=== PATIENT | male | born 1935 | race Caucasian/White ===

== ENCOUNTER 2016-08-21 09:39 | Emergency (ER) | payer OTHER, MEDICARE ==
[~2016-08-21] VITALS: Ht 190.5 cm; Wt 104.5 kg
[~2016-08-21 09:39] MED LIST: ACCUPRIL40 MG PO; AMLODIPINE BESYL5 MG PO; ANALGESIC325 M1 PO; ASPIRIN81 M1 PO; CALCIUM +D & M1 EAC1 PO; CALCIUM 600 +1 EACH PO; INDAPAMIDE2.5 MG PO; ISTALOL5 ML OP; MULTIVITAMIN1 EAC1 PO; NORVASC10 MG PO; NOVOLOG MI100 UNIT/4 IV; QUINAPRIL HCL40 MG PO; SANCTURA XR60 MG PO; SIMVASTATIN40 MG PO; SPIRIVA1 INHALATI IH; TRAVATAN Z5 ML BOTH EYES; TRAVATAN Z5 ML OP
[2016-08-21] MEDS ORDERED: XARELTO20 MG PO (10:00)
[2016-08-21] MEDS ORDERED: LISINOPRIL40 MG PO (10:00)
[2016-08-21] MEDS ORDERED: OXYBUTYNIN CHLO10 MG PO (10:01)
[2016-08-21] MEDS ORDERED: CRANBERRY200 MG PO (10:01)
[2016-08-21] MEDS ORDERED: VITAMIN D2000 UNI1 PO (10:01)
[2016-08-21] MEDS ORDERED: NYSTOP60 GM TP (10:02)
[2016-08-21] MEDS ORDERED: DERMAFIX113 GM TP (10:02)
[2016-08-21 10:29] LABS: EOSINOPHIL (%) 0.1 % (0-5); HEMATOCRIT 41.6 % (38.0-50.0); IMMATURE GRANULOCYTE (%) 0.7 % (0.0-0.7); IMMATURE GRANULOCYTE COUNT 0.1 K/uL; INSTRUMENT ABS NEUTROPHIL CT 12.9 K/uL; LYMPHOCYTE COUNT 0.9 K/uL (1.0-2.8); MCH 26.9 PG (29.0-34.0); MCHC 32.9 G/DL (30.0-36.0); MCV 81.6 FL (86-99); MEAN PLAT.VOLUME 9.5 uM^3 (9.0-12.4); MONOCYTE (%) 6.6 % (3-12); NEUTROPHIL (%) 86.5 % (45-76); NEUTROPHIL COUNT 12.9 K/uL (1.8-6.4); PLATELET COUNT 303 K/uL (156-360); RBC DIS.WIDTH-SD 56.2 % (39-53); WHITE BLOOD COUNT 14.9 K/uL (4.1-10.2)
[2016-08-21 10:40] LABS: CHLORIDE 103 mEq/L (99-109); SODIUM 138 mEq/L (136-147)
[2016-08-21 10:41] LABS: GLUCOSE 133 mg/dL (70-99)
[2016-08-21 10:43] LABS: ANION GAP 17 MEQ/L (2-14)
[2016-08-21 10:45] LABS: GFR ESTIMATE (CALCULATED) 56 mL/min/
[2016-08-21 10:46] LABS: UREA NITROGEN (BUN) 30 mg/dL (9-23)
[2016-08-21] MEDS ORDERED: CIPRO500 MG PO (12:37)
[2016-08-21] MEDS ORDERED: FLAGYL500 MG PO (12:37)
[2016-08-21 12:49] VITALS: BP 133/77
== END 2016-08-21 13:21 | disposition home or self-care (01) ==
LOC: EME → EDBD 09:39 → EME 09:39
PROVIDERS: Emergency Medicine
DX: S30.1XXA Contusion of abdominal wall, initial encounter (principal); S90.01XA Contusion of right ankle, initial encounter; W18.39XA Other fall on same level, initial encounter; Y92.009 Unspecified place in unspecified non-institutional (private) residence as the place of occurrence of the external cause; K57.92 Diverticulitis of intestine, part unspecified, without perforation or abscess without bleeding; I48.91 Unspecified atrial fibrillation; Z79.01 Long term (current) use of anticoagulants; I10 Essential (primary) hypertension; E11.9 Type 2 diabetes mellitus without complications; Z79.4 Long term (current) use of insulin; J44.9 Chronic obstructive pulmonary disease, unspecified; J45.909 Unspecified asthma, uncomplicated; Z86.73 Personal history of transient ischemic attack (TIA), and cerebral infarction without residual deficits; Z87.891 Personal history of nicotine dependence
CPT/HCPCS: 73610; 74177; 80048; 85025; 93005; 99281; 99285; J7030

== ENCOUNTER 2016-10-03 15:43 | Emergency (ER) | payer OTHER, MEDICARE ==
[~2016-10-03] VITALS: Ht 182.9 cm; Wt 110.0 kg
[~2016-10-03 15:43] MED LIST changes: +CIPRO500 MG PO; +CRANBERRY200 MG PO; +DERMAFIX113 GM TP; +FLAGYL500 MG PO; +LISINOPRIL40 MG PO; +NYSTOP60 GM TP; +OXYBUTYNIN CHLO10 MG PO; +VITAMIN D2000 UNI1 PO; +XARELTO20 MG PO
[2016-10-03 16:24] LABS: EOSINOPHIL (%) 0.3 % (0-5); HEMATOCRIT 40.6 % (38.0-50.0); IMMATURE GRANULOCYTE (%) 0.5 % (0.0-0.7); IMMATURE GRANULOCYTE COUNT 0.1 K/uL; INSTRUMENT ABS NEUTROPHIL CT 7.8 K/uL; LYMPHOCYTE COUNT 0.8 K/uL (1.0-2.8); MCH 27.9 PG (29.0-34.0); MCHC 33.3 G/DL (30.0-36.0); MCV 83.9 FL (86-99); MEAN PLAT.VOLUME 9.2 uM^3 (9.0-12.4); MONOCYTE COUNT 1.4 K/uL (0-0.8); NEUTROPHIL (%) 76.8 % (45-76); NEUTROPHIL COUNT 7.8 K/uL (1.8-6.4); PLATELET COUNT 286 K/uL (156-360); RBC DIS.WIDTH-CV 19.4 % (11.8-14.6); RBC DIS.WIDTH-SD 57.3 % (39-53); RED BLOOD COUNT 4.84 M/uL (4.00-5.50); WHITE BLOOD COUNT 10.1 K/uL (4.1-10.2)
[2016-10-03 16:34] LABS: CHLORIDE 106 mEq/L (99-109); SODIUM 135 mEq/L (136-147)
[2016-10-03 16:37] LABS: GLUCOSE 154 mg/dL (70-99)
[2016-10-03 16:38] LABS: ANION GAP 7 MEQ/L (2-14)
[2016-10-03 16:39] LABS: TOTAL BILIRUBIN 0.9 mg/dL (0.0-1.0)
[2016-10-03 16:40] LABS: ALKALINE PHOSPHATASE 77 IU/L (3-129); GFR ESTIMATE (CALCULATED) > 59 mL/min/
[2016-10-03 16:41] LABS: UREA NITROGEN (BUN) 17 mg/dL (9-23)
[2016-10-03 16:52] LABS: ADD MIUA? YES; BILIRUBIN NEGATIVE; BLOOD NEGATIVE; COLOR AMBER ((YELLOW)); GLUCOSE (STRIP) NEGATIVE; KETONES NEGATIVE; LEUKOCYTES TRACE; NITRITE NEGATIVE; PROTEIN (STRIP) 30; SPECIFIC GRAVITY 1.017 (1.000-1.030); UROBILINOGEN 0.2 MG/DL (0.2-1.0)
[2016-10-03 16:59] LABS: BACTERIA RARE /HPF; EPITHELIAL CELLS NONE SEEN /HPF; GRANULAR CASTS 0-5 /LPF; MUCUS TRACE /LPF; RED BLOOD CELLS 0-5 /HPF (0-5); UCUL ADDED? NO; WHITE BLOOD CELLS 0-5 /HPF (0-5)
[2016-10-03 21:02] VITALS: BP 166/95
== END 2016-10-03 21:04 ==
LOC: EME 15:43
PROVIDERS: Emergency Medicine
DX: E86.0 Dehydration (principal); R41.0 Disorientation, unspecified; G91.9 Hydrocephalus, unspecified; Z98.2 Presence of cerebrospinal fluid drainage device; J45.909 Unspecified asthma, uncomplicated; J44.9 Chronic obstructive pulmonary disease, unspecified; I10 Essential (primary) hypertension; Z86.73 Personal history of transient ischemic attack (TIA), and cerebral infarction without residual deficits; E11.9 Type 2 diabetes mellitus without complications; Z79.4 Long term (current) use of insulin; Z87.891 Personal history of nicotine dependence
CPT/HCPCS: 70450; 71010; 80053; 81003; 85025; 93005; 99281; 99285; J7030

== ENCOUNTER 2016-10-15 14:36 | Emergency (ER) | payer OTHER, MEDICARE ==
[~2016-10-15] VITALS: Ht 190.5 cm; Wt 104.5 kg
[2016-10-15 20:21] VITALS: BP 172/89
== END 2016-10-15 20:24 | disposition hospice, home (50) ==
LOC: EME 14:36
DX: I82.622 Acute embolism and thrombosis of deep veins of left upper extremity (principal); J45.909 Unspecified asthma, uncomplicated; J44.9 Chronic obstructive pulmonary disease, unspecified; I10 Essential (primary) hypertension; Z86.73 Personal history of transient ischemic attack (TIA), and cerebral infarction without residual deficits; Z87.891 Personal history of nicotine dependence; I48.91 Unspecified atrial fibrillation; Z51.5 Encounter for palliative care
CPT/HCPCS: 93971; 99281; 99285